=== PATIENT | female | born 1990 | race African-American/Black ===

== ENCOUNTER 2017-08-05 16:38 | Emergency (ER) | payer SELFPAY ==
[~2017-08-05] VITALS: Ht 154.9 cm; Wt 60.8 kg
[2017-08-05 17:07] VITALS: BP 140/97; Ht 154.9 cm; Wt 60.8 kg
== END 2017-08-05 18:51 | disposition home or self-care (01) ==
LOC: ED 16:38
DX: N39.0 Urinary tract infection, site not specified (principal); R03.0 Elevated blood-pressure reading, without diagnosis of hypertension